=== PATIENT | male | born 1940 | race Caucasian/White ===

== ENCOUNTER 2017-10-25 09:57 | Outpatient (CLI) | payer MEDICARE, OTHER | END 2017-10-25 09:58 | disposition home or self-care (01) | LOC: BICULT 09:57 | PROVIDERS: ATTEND Internal Medicine Nephrology | DX: N18.3 Chronic kidney disease, stage 3 (moderate) (principal); N28.1 Cyst of kidney, acquired; N28.89 Other specified disorders of kidney and ureter | CPT/HCPCS: 76770 ==

== ENCOUNTER 2018-12-08 18:55 | Emergency (ER) | payer MEDICARE, OTHER ==
[2018-12-08 19:38] LABS: #Eosinphils 0.2 thou/uL (0.0-0.7); #Lymphocytes 1.7 thou/uL (1.20-3.40); #Monocytes 0.6 thou/uL (0.11-0.59); #Neutrophils 5.1 thou/uL (1.40-6.50); %Basophils 0.2 % (0.0-1.0); %Eosinophils 2.3 % (0.0-10.0); %Lymphocytes 22.2 % (21.0-51.0); %Monocytes 7.3 % (0.0-10.0); Hemoglobin 13.6 g/dL (14.0-18.0); Mean Corpuscular HGB CONC 32.6 g/dL (32.0-36.0); Mean Corpuscular Hemoglobin 31.4 pg (27.0-31.0); Mean Corpuscular Volume 96.2 fL (78.0-98.0); Mean Platelet Volume 6.9 fL (7.4-10.4); Platelet Count 276 thou/uL (130-400); RBC Distribution Width 12.9 % (11.5-14.5); Red Blood Cell (RBC) Count 4.35 mill/uL (4.70-6.10); White Blood Cell (WBC) Count 7.6 thou/uL (4.8-10.8)
[2018-12-08 19:45] LABS: INR-International Normal Ratio 1.7; PTT 32.3 SEC (22.9-36.1); Prothrombin Time 19.8 SEC (12.0-14.7)
--- NOTE | 2018-12-08 19:48 | CT ---
CT HEAD WITHOUT IV CONTRAST COMPARISON: None HISTORY: Injury after a fall 2020 minutes ago. Patient hit head and is on warfarin. TECHNIQUE: Axial CT imaging at 5 mm intervals from vertex through skull base without contrast FINDINGS: There is mild cerebral volume loss. There are scattered areas of diminished attenuation in the perive ntricular white matter likely attributed to chronic small vessel ischemic changes. There is no evidence of an acute cortical infarction or hemorrhage. No mass effect or midline shift is seen. The ventricular system is normal in size, shape, and position. There are postsurgical changes at the skull base on the left including evidence of left mastoidectomy . There is opacification of right-sided mastoid air cells There is a metallic density seen within the posterior aspect of the left temporal bone which may repr esent either a metallic foreign body or prior postsurgical change. This is not related to an acute findings as there is no overlying soft tissue swelling. There is minimal scalp soft tissue swelling seen within the right parietal region with suggestion of soft tissue irregularity probably due to associated laceration. No underlying calvarial fracture is appreciated. IMPRESSION: 1. No acute intracranial abnormality demonstrated. 2. Small right parietal scalp hematoma and associated laceration. No calvarial fracture is seen. 3. Mild cerebral volume loss. 4. Postsurgical changes left skull base including left mastoidectomy. 5. Opacification of right mastoid air cells.
[2018-12-08 19:59] LABS: ALT (SGPT) 11 U/L (8-55); AST (SGOT) 17 U/L (5-34); Albumin 3.7 g/dL (3.4-4.8); Alkaline Phosphatase 97 U/L (40-150); Anion Gap 14 mmol/L (10-20); BUN (Urea Nitrogen) 20 mg/dL (8.4-25.7); Bilirubin, Total 0.5 mg/dL (0.2-1.2); Calc. Creatinine Clearance 0 mL/min (70-130); Calcium 9.3 mg/dL (7.8-10.44); Carbon Dioxide 29 mmol/L (23-31); Chloride 97 mmol/L (98-107); Estimated GFR-MDRD 55; Globulin 2.9 g/dL (2.4-3.5); Glucose 108 mg/dL (83-110); Potassium 4.2 mmol/L (3.5-5.1); Protein, Total 6.6 g/dL (5.8-8.1); Sodium 136 mmol/L (136-145)
--- NOTE | 2018-12-08 20:13 | RAD ---
AP VIEW CHEST: 12/08/18 HISTORY: Cough. AP view chest is obtained on 12/08/18. Comparison made to previous exam from 05/20/07. AP view chest demonstrates surgical clips seen in the lower left neck. The lungs are well aerated. No evidence of active intrathoracic disease seen. No evidence of effusions, pneumonia, or pneumothorax seen. IMPRESSION: Unremarkable AP view chest. POS: [facility]
== END 2018-12-08 21:42 | disposition home or self-care (01) ==
LOC: ERS 18:55
DX: S01.03XA Puncture wound without foreign body of scalp, initial encounter (principal); R60.0 Localized edema; F17.200 Nicotine dependence, unspecified, uncomplicated; Z79.01 Long term (current) use of anticoagulants; Z86.718 Personal history of other venous thrombosis and embolism; W18.30XA Fall on same level, unspecified, initial encounter
CPT/HCPCS: 36415; 70450; 71045; 80053; 83880; 84484; 85025; 85610; 85730; 93005

== ENCOUNTER 2019-01-03 10:24 | Outpatient (CLI) | payer MEDICARE, OTHER ==
--- NOTE | 2019-01-03 12:22 | RAD ---
RIGHT HIP RADIOGRAPHS 2 VIEWS: DATE: 01/03/2019. PROVIDED CLINICAL HISTORY: Hip pain. FINDINGS: There is a displaced right femoral neck fracture with prominent superior and lateral migration of the femoral neck with respect to the femoral head. Hip joint space appears preserved. Surgical clips a re seen about the proximal thigh. IMPRESSION: Displaced right hip fracture. The patient was advised to present to the nearest emergency room. POS: [facility]
== END 2019-01-03 10:25 | disposition home or self-care (01) ==
LOC: BICRAD 10:24
PROVIDERS: ATTEND Family Medicine
DX: M25.551 Pain in right hip (principal); S72.001A Fracture of unspecified part of neck of right femur, initial encounter for closed fracture

== ENCOUNTER 2019-01-03 10:59 | Inpatient (IN) | payer MEDICARE, OTHER ==
[2019-01-03 13:02] LABS: #Eosinphils 0.1 thou/uL (0.0-0.7); #Lymphocytes 1.5 thou/uL (1.20-3.40); #Monocytes 0.7 thou/uL (0.11-0.59); #Neutrophils 5.7 thou/uL (1.40-6.50); %Basophils 0.3 % (0.0-1.0); %Eosinophils 1.3 % (0.0-10.0); %Lymphocytes 18.3 % (21.0-51.0); %Monocytes 8.4 % (0.0-10.0); %Neutrophils 71.7 % (42.0-75.0); Hemoglobin 13.6 g/dL (14.0-18.0); Mean Corpuscular HGB CONC 32.4 g/dL (32.0-36.0); Mean Corpuscular Hemoglobin 31.2 pg (27.0-31.0); Mean Corpuscular Volume 96.2 fL (78.0-98.0); Mean Platelet Volume 6.9 fL (7.4-10.4); Platelet Count 281 thou/uL (130-400); RBC Distribution Width 13.1 % (11.5-14.5); Red Blood Cell (RBC) Count 4.36 mill/uL (4.70-6.10); White Blood Cell (WBC) Count 7.9 thou/uL (4.8-10.8)
[2019-01-03] MEDS ORDERED: Morphine 4 MG/ML VIAL ONE (13:06)
[2019-01-03 13:08] LABS: INR-International Normal Ratio 2.4; PTT 53.7 SEC (22.9-36.1); Prothrombin Time 26.6 SEC (12.0-14.7)
[2019-01-03 13:26] LABS: ALT (SGPT) 12 U/L (8-55); AST (SGOT) 20 U/L (5-34); Albumin 3.9 g/dL (3.4-4.8); Alkaline Phosphatase 96 U/L (40-150); Anion Gap 13 mmol/L (10-20); BUN (Urea Nitrogen) 26 mg/dL (8.4-25.7); Bilirubin, Total 0.6 mg/dL (0.2-1.2); Calc. Creatinine Clearance 0 mL/min (70-130); Calcium 9.7 mg/dL (7.8-10.44); Carbon Dioxide 29 mmol/L (23-31); Chloride 100 mmol/L (98-107); Estimated GFR-MDRD 74; Globulin 3.2 g/dL (2.4-3.5); Glucose 94 mg/dL (83-110); Potassium 4.1 mmol/L (3.5-5.1); Protein, Total 7.1 g/dL (5.8-8.1); Sodium 138 mmol/L (136-145)
--- NOTE | 2019-01-03 13:51 | RAD ---
AP CHEST: Date: 01/03/19 HISTORY: Fall with chest injury. COMPARISON: 12/08/18. FINDINGS: The lungs are clear. No evidence of infiltrate. Numerous surgical clips overlie the left apex, unchan ged from prior exam. The vascular markings are normal. There is linear parenchymal stranding bilatera lly, which is stable and appears chronic. No evidence of infiltrate or effusion. Heart and mediastinu m unremarkable. Visualized osseous structures appear intact. IMPRESSION: No acute finding or interval change noted. POS: [facility]
--- NOTE | 2019-01-03 13:52 | RAD ---
RIGHT FEMUR 2 VIEWS: Date: 01/03/19 HISTORY: Injury from a fall. FINDINGS: Markedly displaced and foreshortened right subcapital femoral neck fracture. Bony demineralization. R ight hip joint arthrosis. IMPRESSION: Minimally comminuted foreshortened right subcapital femoral neck fracture with some resultant deformi ty. Bony demineralization. POS: [facility]
[2019-01-03] MEDS ORDERED: Ondansetron PF 4 MG/2 ML Vial IVP PRN ×2 (16:47→16:51)
[2019-01-03] MEDS ORDERED: Ondansetron ODT 4 MG TAB SL PRN (16:47)
[2019-01-03] MEDS ORDERED: Acetaminophen 325 MG TAB PO PRN (16:47)
[2019-01-03] MEDS ORDERED: Promethazine HCl 25 MG/ML VIAL IM PRN (16:51)
[2019-01-03] MEDS ORDERED: Morphine 2 MG/ML SYRINGE SLOW IVP PRN (16:51)
[2019-01-03] MEDS ORDERED: traMADol HCl 50 MG TAB PO PRN (16:51)
[2019-01-03] MEDS ORDERED: hydrALAZINE 20 MG/ML VIAL SLOW IVP PRN (16:51)
[2019-01-03] MEDS ORDERED: Cyclobenzaprine 10 MG TAB PO PRN (16:51)
[2019-01-03 17:16] VITALS: BMI 17.1
[2019-01-03] MEDS: Sodium Chloride 0.9% 1,000 ML IV SCH (18:40)
[2019-01-03] MEDS: Acetaminophen 1,000 MG in Premix Bag 1 BAG IVPB SCH (19:01)
[2019-01-03] MEDS: Famotidine 20 MG TAB PO SCH (19:05)
[2019-01-03] MEDS: Senokot S 8.6-50 MG TAB PO SCH (19:05)
[2019-01-03] MEDS: traMADol HCl 50 MG TAB PO SCH (19:05)
[2019-01-03] MEDS: Ibuprofen 600 MG TAB PO SCH (21:46)
--- NOTE | 2019-01-03 23:35 | CON ---
DATE OF CONSULTATION: 01/03/2019 CONSULTING PHYSICIAN: Dr. Huber Mcdowell. REASON FOR CONSULTATION: Subacute right hip fracture. BRIEF CLINICAL HISTORY: Robson is a 78-year-old white male, who has had right hip pain now for at least 4 to 5 weeks. Apparently, he fell quite some time ago and he has been ambulating and getting around with hip pain since then. He has not had a workup or any radiographs until he was brought to [facility], where plain radiographs in the emergency room demonstrated what appeared to be a subacute femoral neck fracture with shortening. Dr. Garcia evaluated the patient and our service was consulted for definitive orthopedic management of his problem. PAST MEDICAL HISTORY: Significant squamous cell carcinoma of the head and neck. Also, includes hypertension, nephrolithiasis, and deep vein thrombosis. PAST SURGICAL HISTORY: He has had a radical submandibular excision. He has also had multiple skin excisions and facial skin plasties. MEDICATIONS: Please see medication reconciliation form. ALLERGIES: NO KNOWN DRUG ALLERGIES. SOCIAL HISTORY: The patient smokes and has done so all his life. PHYSICAL EXAMINATION: Visual inspection of the right lower extremity demonstrates shortening and external rotation of the lower extremity, but he is neurovascularly intact. He is thin and appears poorly nourished overall. He is neurovascularly intact in the extremity and range of motion is not assessed due to an underlying fracture. IMAGING STUDIES: AP pelvis to the right hip demonstrates what appears to be a subacute femoral neck fracture with significant shortening. IMPRESSION: 1. Subacute right hip femoral neck fracture with shortening. 2. Cachexia, poor health and nourishment. 3. Hypertension. PLAN: 1. Due to the patient's anticoagulant status, we will try and allow for his INR and PT to come within normal limits for surgical intervention. He has a history of deep vein thrombosis and also he has been treated for. 2. The risks, benefits, options, alternatives, and rationale for proceeding with right hip hemiarthroplasty has been explained in great detail with the patient. He is ready to proceed. All questions were answered. No guarantee of outcome has been stated or implied. 3. Please see orders. 4. The patient will be tentatively scheduled for tomorrow, but I am a little skeptical that his PT/INR will be within normal limits within the next 24 hours if we are going to allow his Coumadin and therapy to wear off. Job ID: [id number]
--- NOTE | 2019-01-03 23:53 | HP ---
TRAUMA SURGEON: Matt Garcia DO CONSULTING PHYSICIAN: Huber Mcdowell MD HISTORY OF PRESENT ILLNESS: The patient is a 78-year-old male who presented to the emergency department complaining of right hip pain. He reports he fell on November 07, nearly two months ago. He was originally evaluated in the emergency department as well as by other physicians, but no injury was identified in the right hip. Today, x-ray imaging demonstrated that he had a right femoral neck fracture. He denied any other pain. Pulses are intact. No decreased motor sensation. Denies nausea, vomiting, or diarrhea. The patient had been ambulating with a walker since the time of the fall. He had previously not used a walker. REVIEW OF SYSTEMS: All additional 10-point review of systems negative except as indicated above. PAST MEDICAL HISTORY: Skin of the head and neck cancers, DVTs in the lower extremities, on Coumadin, throat cancer, hypertension. PAST SURGICAL HISTORY: Several skin surgeries on the head and neck. SOCIAL HISTORY: The patient reports smoking more than one pack of cigarettes per day for the past 60 years. He rarely drinks alcohol and he denies drug abuse. He lives with his at home. MEDICATIONS: 1. Amlodipine 10 mg daily. 2. Coumadin 5 mg daily. 3. Tylenol. 4. Eye ointment. The patient is unsure if this is his complete list of medications, but he does go to [facility] to have his prescriptions filled. ALLERGIES: NO KNOWN DRUG ALLERGIES. PHYSICAL EXAMINATION: VITAL SIGNS: Temperature 97.9, pulse 78, respirations 90, oxygen saturation 95% on room air, blood pressure 135/70. PRIMARY SURVEY: Airway intact. Adequate breath sounds bilaterally. 2+ pulses palpable in the bilateral radials, femorals, and DPs. GCS is 15. Gross motor and sensation are intact. No lacerations, bruising, or external bleeding. SECONDARY SURVEY: HEAD: Normocephalic, atraumatic. No gross palpable skull deformities or tenderness. EYES: Pupils 3-2, equal, round, and reactive to light bilaterally. ENT: No hemotympanum. No epistaxis. No septal hematoma. Midface stable to manipulation. No blood in the oropharynx. Dentition is intact. No anterior neck injury/crepitus/tenderness. Multiple skin lesions with deformities to his left ear and nose, which are chronic from previous surgeries due to cancer. C-SPINE: No step-offs or deformities, nontender. C-collar not in place. CHEST: Nontender. No crepitus. No abrasions or ecchymosis. Equal chest movement. ABDOMEN: Soft, nontender, nondistended. PELVIS: Stable to palpation. Right lateral hip and thigh tenderness. No abrasions or ecchymosis noted. RECTAL: Deferred. GENITOURINARY: Deferred. EXTREMITIES: No gross deformities. No abrasions or ecchymosis noted. Some shortening of the right lower extremity. 2+ pulses in the bilateral radials, femorals, and DPs. BACK/SPINE: No step-offs or deformities or tenderness to palpation of the thoracic or lumbar spine. No abrasions or ecchymosis noted. NEURO: GCS is 15. Gross motor and sensation intact, 5/5 strength in the bilateral occupational therapy supervisor, plantar flexion, and dorsiflexion. LABORATORY FINDINGS: White count 7.9, hemoglobin 13.6, hematocrit 41.9, platelets 281. INR 2.4. Sodium 138, potassium 4.1, chloride 100, carbon dioxide 29, BUN 26, creatinine 0.98, total bilirubin 0.6, AST 20, ALT 12. INR 2.4. DIAGNOSTIC REPORTS: Chest x-ray demonstrates no acute findings or interval changes noted. X-ray of the right femur demonstrates minimally comminuted foreshortened right subcapital femoral neck fracture with some resultant deformity. Bony demineralization. ASSESSMENT: 1. Status post mechanical fall, delayed presentation. 2. Right femoral neck fracture. 3. History of DVTs, on Coumadin. Skin cancer, throat cancer, hypertension. PLAN: The patient will be admitted to the trauma service. He will have a regular diet tonight, but will be made n.p.o. after midnight for possible OR with Dr. Mcdowell tomorrow. We will not give him vitamin K or FFP to reverse his INR. We will allow to slowly drift down. Surgery may be postponed until Tuesday if his INR is not below 2 tomorrow. We will restart all of his home medications except Coumadin as clinically indicated. PT/OT to see the patient postoperatively. We will also have Speech Language Pathology evaluate the patient for swallow evaluation as sometimes he has difficulty swallowing. He does have a significant history of chemotherapy and radiation to his neck. We will provide pain control as well as stress ulcer prophylaxis, but we will not give DVT prophylaxis at this time. The patient was seen and examined by Dr. Garcia this afternoon in the emergency department. Job ID: [id number]
[2019-01-04] MEDS: Acetaminophen 1,000 MG in Premix Bag 1 BAG IVPB SCH ×2 (00:22→06:22)
[2019-01-04] MEDS: traMADol HCl 50 MG TAB PO SCH ×4 (00:23→19:05)
[2019-01-04] MEDS: Ibuprofen 600 MG TAB PO SCH ×3 (05:51→22:55)
[2019-01-04 06:57] LABS: #Eosinphils 0.1 thou/uL (0.0-0.7); #Lymphocytes 0.9 thou/uL (1.20-3.40); #Monocytes 0.5 thou/uL (0.11-0.59); #Neutrophils 6.3 thou/uL (1.40-6.50); %Basophils 0.3 % (0.0-1.0); %Eosinophils 1.6 % (0.0-10.0); %Lymphocytes 10.9 % (21.0-51.0); %Monocytes 6.5 % (0.0-10.0); %Neutrophils 80.6 % (42.0-75.0); Hemoglobin 11.3 g/dL (14.0-18.0); Mean Corpuscular HGB CONC 33.6 g/dL (32.0-36.0); Mean Corpuscular Hemoglobin 32.1 pg (27.0-31.0); Mean Corpuscular Volume 95.5 fL (78.0-98.0); Mean Platelet Volume 7.4 fL (7.4-10.4); Platelet Count 236 thou/uL (130-400); Red Blood Cell (RBC) Count 3.51 mill/uL (4.70-6.10); White Blood Cell (WBC) Count 7.8 thou/uL (4.8-10.8)
[2019-01-04 07:01] LABS: INR-International Normal Ratio 2.6; Prothrombin Time 28.2 SEC (12.0-14.7)
[2019-01-04 07:18] LABS: Anion Gap 12 mmol/L (10-20); BUN (Urea Nitrogen) 19 mg/dL (8.4-25.7); Calc. Creatinine Clearance 58 mL/min (70-130); Calcium 8.6 mg/dL (7.8-10.44); Carbon Dioxide 26 mmol/L (23-31); Chloride 105 mmol/L (98-107); Estimated GFR-MDRD Greater than 90; Glucose 60 mg/dL (83-110); Magnesium 1.5 mg/dL (1.6-2.6); Phosphorus 2.8 mg/dL (2.3-4.7); Potassium 3.2 mmol/L (3.5-5.1); Sodium 140 mmol/L (136-145)
[2019-01-04] MEDS ORDERED: Magnesium 2 GM/50 ML 4 GM in Premix Bag 1 BAG IVPB SCH (07:45)
[2019-01-04] MEDS ORDERED: Potassium Phosphate 30 MMOL in Sodium Chloride 0.9% 500 ML IVPB SCH (07:45)
[2019-01-04] MEDS ORDERED: Magnesium Sulfate 4 GM in Sodium Chloride 0.9% 250 ML 250 ML IVPB SCH (08:15)
[2019-01-04] MEDS ORDERED: Potassium Phosphate 30 MMOL in Sodium Chloride 0.9% 250 ML 250 ML IVPB SCH (08:15)
[2019-01-04] MEDS: Senokot S 8.6-50 MG TAB PO SCH ×2 (08:30→20:02)
[2019-01-04] MEDS: Polyethylene Glycol 3350 17 GM Packet PO SCH (08:30)
[2019-01-04] MEDS: Famotidine 20 MG TAB PO SCH ×2 (08:30→20:01)
[2019-01-04] MEDS ORDERED: Acetaminophen 1,000 MG in Premix Bag 1 BAG IVPB SCH (09:00)
--- NOTE | 2019-01-04 12:26 | PRG ---
DATE OF SERVICE: 01/04/2019 SUBJECTIVE: Mr. Dawn is a 78-year-old man with history of multiple skin cancers. The patient is almost 2 months now status post ground level fall sustaining subacute right hip femoral neck fracture. The patient is also coagulopathic from warfarin therapy for chronic venous thromboembolism. He reports adequate pain control. OBJECTIVE: VITAL SIGNS: This morning include blood pressure 114/68, pulse 72, respiratory rate is 18, temperature is 98.4 degrees Fahrenheit, and oxygen saturation is 90% on room air, which is baseline. He has no dyspnea. HEART: Reveals regular rate and rhythm. No murmurs or gallops auscultated. LUNGS: Clear to auscultation bilaterally. Breathing, regular and nonlabored. ABDOMEN: Soft, nontender, and nondistended. EXTREMITIES: Reveal 2+ radial and pedal pulses bilaterally. He has no ankle edema present. NEUROLOGIC: Reveals no focal deficits present. LABORATORY FINDINGS: Today includes a CBC with 7800 white blood cells, hemoglobin and hematocrit of 11.3 and 33.5 respectively. Platelet count is 236,000. PT and INR noted at 28.2 seconds and 2.6 respectively. Metabolic profile; sodium 140, potassium 3.2, chloride is 105, bicarb is 26, BUN is 19, creatinine 0.73, glucose is 60, magnesium 1.5, and phosphorus is 2.8. IMPRESSION: 1. Postadmission day #1 status post fall with subacute right femoral neck fracture, it is almost 2 months post injury. 2. Warfarin-induced coagulopathy. 3. History of venous thromboembolism. 4. Acute hypomagnesemia. 5. Acute hypophosphatemia. 6. Acute hypokalemia. PLAN: 1. Correct abnormal electrolytes. 2. The patient will be given vitamin K 2 mg intravenously to partially reverse his warfarin therapy. 3. Anticipate the patient will be able to go to surgery tomorrow for operative fixation of the right hip fracture. Above findings and plan have been discussed with the patient, who indicates understanding of information given. I have answered his questions. Job ID: [id number]
[2019-01-04] MEDS: Acetaminophen 500 MG TAB PO SCH ×2 (12:45→19:05)
[2019-01-04] MEDS: Sodium Chloride 0.9% 1,000 ML IV SCH (14:05)
[2019-01-05] MEDS: Acetaminophen 500 MG TAB PO SCH ×6 (00:18→23:28)
[2019-01-05] MEDS: traMADol HCl 50 MG TAB PO SCH ×5 (00:18→23:27)
[2019-01-05] MEDS: Sodium Chloride 0.9% 1,000 ML IV SCH ×2 (01:56→16:38)
[2019-01-05] MEDS: Ibuprofen 600 MG TAB PO SCH ×3 (05:42→23:26)
[2019-01-05] MEDS ORDERED: Fentanyl 100 MCG/2 ML VIAL ONE ×2 (06:49)
[2019-01-05 06:54] LABS: #Eosinphils 0.1 thou/uL (0.0-0.7); #Lymphocytes 0.8 thou/uL (1.20-3.40); #Monocytes 0.5 thou/uL (0.11-0.59); #Neutrophils 8.4 thou/uL (1.40-6.50); %Basophils 0.2 % (0.0-1.0); %Eosinophils 0.7 % (0.0-10.0); %Lymphocytes 8.5 % (21.0-51.0); %Monocytes 4.6 % (0.0-10.0); Hemoglobin 12.6 g/dL (14.0-18.0); Mean Corpuscular HGB CONC 33.5 g/dL (32.0-36.0); Mean Corpuscular Hemoglobin 31.9 pg (27.0-31.0); Mean Corpuscular Volume 95.2 fL (78.0-98.0); Mean Platelet Volume 6.8 fL (7.4-10.4); Platelet Count 249 thou/uL (130-400); RBC Distribution Width 13.1 % (11.5-14.5); Red Blood Cell (RBC) Count 3.94 mill/uL (4.70-6.10); White Blood Cell (WBC) Count 9.8 thou/uL (4.8-10.8)
[2019-01-05 06:56] LABS: INR-International Normal Ratio 1.4; Prothrombin Time 16.9 SEC (12.0-14.7)
[2019-01-05] MEDS: Polyethylene Glycol 3350 17 GM Packet PO SCH (08:00)
[2019-01-05] MEDS: Senokot S 8.6-50 MG TAB PO SCH ×2 (08:00→21:29)
[2019-01-05] MEDS: Famotidine 20 MG TAB PO SCH ×2 (08:00→21:19)
[2019-01-05] MEDS ORDERED: Benzocaine 20% Spray 60 ML CAN ONE (08:08)
[2019-01-05] MEDS ORDERED: Ketamine 50 MG/ML (10ML VIAL) ONE (08:10)
[2019-01-05 08:32] LABS: Anion Gap 9 mmol/L (10-20); BUN (Urea Nitrogen) 17 mg/dL (8.4-25.7); Calc. Creatinine Clearance 60 mL/min (70-130); Calcium 8.4 mg/dL (7.8-10.44); Carbon Dioxide 31 mmol/L (23-31); Chloride 103 mmol/L (98-107); Estimated GFR-MDRD Greater than 90; Glucose 94 mg/dL (83-110); Magnesium 1.9 mg/dL (1.6-2.6); Phosphorus 2.2 mg/dL (2.3-4.7); Potassium 3.9 mmol/L (3.5-5.1); Sodium 139 mmol/L (136-145)
[2019-01-05 10:30] LABS: Actual Bicarbonate (HCO3a) 29.6 mEq/L (22-28); Base Excess (BEa) 2.2 mEq/L (-2.0 to +3.0); CO2 Tension 58.5 mmHg (35.0-45.0); Calcium, Ionized 1.13 mmol/L (1.12-1.30); Carboxyhemoglobin (COHb) 1.4 gm% (0.0-3.0); Hemoglobin (Hb) 13.4 g/dL (14.0-18.0); O2 Tension (PaO2) 177.9 mmHg (> 70.0); Potassium - ABG Lab 4.07 mmol/L (3.70-5.30); pH, Arterial 7.32 (7.35-7.45)
[2019-01-05 10:34] LABS: ALV-art Gradient 34.175 (0-20); Puncture Site LINE
[2019-01-05] MEDS ORDERED: Ondansetron PF 4 MG/2 ML Vial ONE (10:45)
[2019-01-05] MEDS ORDERED: Dexamethasone 20 MG/5 ML VIAL ONE (10:45)
[2019-01-05] MEDS ORDERED: ePHEDrine 50 MG/ML VIAL ONE (10:45)
[2019-01-05] MEDS ORDERED: Rocuronium Bromide 10 MG/ML (10ML VIAL) ONE (10:45)
[2019-01-05] MEDS ORDERED: PHENYLEPHRINE-NS 100 MCG/ML 10 ML SYRINGE ONE (10:45)
[2019-01-05] MEDS ORDERED: PROPOFOL 200 MG/20 ML VIAL ONE (10:45)
[2019-01-05] MEDS ORDERED: SYSTANE 3.5 GM TUBE EA EYE PRN (12:29)
[2019-01-05] MEDS ORDERED: Refresh Lacri-lube Opth Oint 7 GM TUBE FS PRN (12:44)
--- NOTE | 2019-01-05 12:51 | OP ---
DATE OF PROCEDURE: 01/05/2019 PREOPERATIVE DIAGNOSIS: Right hip femoral neck fracture, chronic. POSTOPERATIVE DIAGNOSIS: Right hip femoral neck fracture, chronic. PROCEDURE PERFORMED: Right hip hemiarthroplasty. ANESTHESIA: General. DAIRY CATTLE FARM WORKER: Gabby Vega PA-C ESTIMATED BLOOD LOSS: 150 mL. IMPLANTS: DePuy system was used with a size 7 press-fit Stafford stem, a 28 x 55 bipolar cup and a +5 Articul/Sergio femoral head. COMPLICATIONS: None. DRAINS: None. SPECIMEN: None. OUTCOME: Stable hemiarthroplasty. INDICATIONS: The patient is a 78-year-old gentleman, who approximately two months ago sustained a ground level fall, injuring his right hip. The patient continued to attempt to mobilize and ambulate; however, with ongoing groin pain, eventually presented to the hospital, where x-rays demonstrated a femoral neck fracture. The patient was on blood thinners and as such, now reversed and scheduled for right hip hemiarthroplasty to provide pain relief and improve mobility. Informed consent has been obtained. I believe all questions have been answered. Risks and benefits have been discussed and risks included, but are not limited to bleeding, infection, nerve injury, DVT, PE, loss of limb or life, or hip dislocation. The patient appears to understand and does wish to proceed. Consent has been signed. DESCRIPTION OF PROCEDURE: The patient was brought to the operating room and a time-out performed followed by induction of general anesthesia. Next, the patient was positioned in the left lateral decubitus position and a sterile prep and drape was performed of the right lower extremity. Next, a curvilinear incision was made centered over the greater trochanter. After skin was sharply incised, dissection was carried down with electrocautery to the underlying fascia vaibhav and tensor fascia. This structure was incised in-line with skin incision and then reflected anteriorly and posteriorly with a Charnley retractor. The trochanteric bursa was swept off the short external rotators and then an elevator was passed deep to the abductors exposing the short external rotators. The piriformis superior and inferior gemelli and obturator internus were released off the posterior aspect of the proximal femur and then reflected posteriorly exposing the capsule. A T-capsulotomy was then performed and at this point, the fracture of the femoral neck could be clearly visualized. Some of the scar tissue from around the fracture site was removed with rongeur and then a T-handle corkscrew device was inserted in the femoral head and the femoral head was removed without difficulty. Next, an oscillating saw was used to make a femoral neck cut. A box chisel was then used to further prepare the proximal femur followed by a T-handle awl, then lateralizing reamer. Progressive T-handle awls were passed down the canal until a size 7 gave a good fit distally. Next, broaching was started at size 4 and continued up to size 7, which gave good proximal fit and fill. The trial broach was left in place and a trial reduction performed with a +5 femoral head, which gave reasonably good adventism of leg lengths and reasonably good stability of the hip. Next, all trial components were removed from the hip and then the acetabular cup in the femoral canal was irrigated with 3 L of normal saline using Pulsavac. Next, the size 7 stem was introduced in the proximal femur and impacted down to an acceptable level. This was followed by application of the bipolar head on the stem and then reduction of the hip. The hip was found to be relatively stable. Next, wound closure was performed. A #2 Vicryl was used to reapproximate the leaflets of the capsule. This was followed by a #2 Vicryl to reapproximate the short external rotators. A #2 Vicryl also used for the tensor fascia and fascia vaibhav followed by 2-0 Vicryl subcutaneously and ambrose for the skin. Xeroform gauze and tape dressing was applied to the thigh and the patient was transferred to recovery room in stable condition. There were no complications. He tolerated the procedure well. Job ID: [id number]
--- NOTE | 2019-01-05 14:06 | PRG ---
DATE OF SERVICE: 01/05/2019 SUBJECTIVE: Mr. Dawn is a 78-year-old man with extensive comorbidities. The patient underwent right hip hemiarthroplasty today. Following surgery, he is admitted to intensive care unit now on mechanical ventilator support. I have attempted multiple times to wean the patient to CPAP without success as the patient will promptly become apneic. He remains quite deconditioned on no sedatives at this time. Blood pressure, however, has remained stable on no vasopressor or inotropic support. OBJECTIVE: VITAL SIGNS: Include blood pressure 140/70, pulse is 83, respiratory rate is 16, temperature is 96.1 degrees Fahrenheit, and oxygen saturation is 95% on FiO2 of 40%. HEART: Reveals regular rate and rhythm. No murmurs or gallops auscultated. LUNGS: Clear to auscultation bilaterally. Breathing, regular and nonlabored. ABDOMEN: Soft and scaphoid. He has no tenderness to palpation. EXTREMITIES: Reveal 2+ radial and pedal pulses bilaterally. No ankle edema is present. NEUROLOGIC: Reveals no focal deficits present. LABORATORY FINDINGS: Today include a CBC with 9800 white blood cells, hemoglobin and hematocrit of 12.6 and 37.5 respectively. Platelet count 249,000. Metabolic profile; sodium 139, potassium 3.9, chloride is 103, bicarb is 31, BUN 17, creatinine is 0.71, glucose 94, magnesium 1.9, and phosphorus is 2.2. IMPRESSION: 1. Status post right hip hemiarthroplasty. 2. Acute respiratory failure secondary to chronic debility. 3. Acute hypomagnesemia. 4. Acute hypophosphatemia. 5. Acute hypokalemia. PLAN: 1. Correct abnormal electrolytes. 2. Continue with mechanical ventilator support and begin ventilatory wean as the patient tolerates. 3. I did discuss with the patient's and granddaughter at bedside. 4. I raise concerns about this patient's chronic malnutrition status and debility, which will make ventilatory liberation tedious. 5. 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 The patient's have indicated understanding of information given. I have answered the questions. Total critical care time is 45 minutes. Job ID: [id number]
[2019-01-05 16:01] LABS: Actual Bicarbonate (HCO3a) 29.9 mEq/L (22-28); Base Excess (BEa) 4.7 mEq/L (-2.0 to +3.0); CO2 Tension 46.5 mmHg (35.0-45.0); Hemoglobin (Hb) 13.2 g/dL (14.0-18.0); O2 Tension (PaO2) 69.1 mmHg (> 70.0); Potassium - ABG Lab 4.38 mmol/L (3.70-5.30); pH, Arterial 7.43 (7.35-7.45)
[2019-01-05 16:20] LABS: ALV-art Gradient 157.975 (0-20); Puncture Site LINE
[2019-01-05] MEDS: Acetaminophen 1,000 MG in Premix Bag 1 BAG IVPB SCH ×2 (16:40→23:34)
--- NOTE | 2019-01-05 18:06 | RAD ---
RIGHT HIP: 01/05/19 Two views. HISTORY: Postop follow-up. FINDINGS/IMPRESSION: Postop changes are noted. A right hip prosthesis has been placed. Components appear in adequate posit ion and alignment. POS: [facility]
[2019-01-05] MEDS: CEFAZOLIN 2 GM in Premix Bag 1 BAG IVPB SCH ×2 (18:22→23:34)
[2019-01-06] MEDS: CEFAZOLIN 2 GM in Premix Bag 1 BAG IVPB SCH ×2 (01:42→09:27)
[2019-01-06 05:00] LABS: #Lymphocytes 0.8 thou/uL (1.20-3.40); #Monocytes 0.5 thou/uL (0.11-0.59); #Neutrophils 10.1 thou/uL (1.40-6.50); %Basophils 0.4 % (0.0-1.0); %Eosinophils 0.1 % (0.0-10.0); %Lymphocytes 6.6 % (21.0-51.0); %Monocytes 4.3 % (0.0-10.0); %Neutrophils 88.6 % (42.0-75.0); Hemoglobin 11.5 g/dL (14.0-18.0); Mean Corpuscular HGB CONC 32.2 g/dL (32.0-36.0); Mean Corpuscular Hemoglobin 31.5 pg (27.0-31.0); Mean Corpuscular Volume 97.9 fL (78.0-98.0); Mean Platelet Volume 7.3 fL (7.4-10.4); Platelet Count 234 thou/uL (130-400); RBC Distribution Width 13.1 % (11.5-14.5); Red Blood Cell (RBC) Count 3.64 mill/uL (4.70-6.10); White Blood Cell (WBC) Count 11.4 thou/uL (4.8-10.8)
[2019-01-06 05:26] LABS: Anion Gap 8 mmol/L (10-20); BUN (Urea Nitrogen) 18 mg/dL (8.4-25.7); Calc. Creatinine Clearance 58 mL/min (70-130); Calcium 8.2 mg/dL (7.8-10.44); Carbon Dioxide 31 mmol/L (23-31); Chloride 103 mmol/L (98-107); Estimated GFR-MDRD Greater than 90; Glucose 121 mg/dL (83-110); Magnesium 1.8 mg/dL (1.6-2.6); Phosphorus 3.4 mg/dL (2.3-4.7); Potassium 4.6 mmol/L (3.5-5.1); Sodium 137 mmol/L (136-145)
[2019-01-06] MEDS: traMADol HCl 50 MG TAB PO SCH ×3 (06:05→17:55)
[2019-01-06] MEDS: Acetaminophen 500 MG TAB PO SCH ×3 (06:05→17:55)
[2019-01-06] MEDS: Ibuprofen 600 MG TAB PO SCH (06:05)
[2019-01-06] MEDS: Acetaminophen 1,000 MG in Premix Bag 1 BAG IVPB SCH (06:10)
[2019-01-06] MEDS: Sodium Chloride 0.9% 1,000 ML IV SCH (06:11)
[2019-01-06] MEDS: Senokot S 8.6-50 MG TAB PO SCH ×2 (09:59→21:33)
[2019-01-06] MEDS: Polyethylene Glycol 3350 17 GM Packet PO SCH (09:59)
[2019-01-06] MEDS: Famotidine 20 MG TAB PO SCH ×2 (09:59→21:32)
[2019-01-06] MEDS ORDERED: Ibuprofen 600 MG TAB PO PRN (11:07)
--- NOTE | 2019-01-06 12:58 | PRG ---
DATE OF SERVICE: 01/06/2019 SUBJECTIVE: Mr. Dawn is a 78-year-old man, who is postoperative day #1 status post right hip hemiarthroplasty. He was successfully extubated and has had no pulmonary issues since. This morning, he is awake and alert. He reports adequate pain control. Urinary output which was previously marginal is now improving. The patient just had a bowel movement. OBJECTIVE: VITAL SIGNS: This morning, include blood pressure 136/70, pulse 85, respiratory rate 17, temperature 97.9 degrees Fahrenheit, and oxygen saturation is 98% on 2 L by nasal cannula oxygen. HEART: Reveals regular rate and rhythm. No murmurs or gallops auscultated. LUNGS: Clear to auscultation bilaterally. Breathing regular and nonlabored. ABDOMEN: Soft, nontender, and nondistended. EXTREMITIES: Reveals 2+ radial and pedal pulses bilaterally. No ankle edema is present. NEUROLOGIC: Reveals no focal deficits present. LABORATORY FINDINGS: CBC with 11,400 white blood cells, hemoglobin and hematocrit 11.5 and 35.7 respectively. Platelet count is 234,000. Metabolic profile; sodium 137, potassium is 4.6, chloride is 103, bicarb is 31, BUN 18, creatinine 0.74, glucose is 121, and magnesium is 1.8. IMPRESSION AND PLAN: Postop day #1, status post right hip hemiarthroplasty. The patient is hemodynamically stable. We will discontinue Bhatia catheter this morning. Activity will be initiated per Physical and Occupational Therapy. We will ask PM and R to evaluate the patient for possible inpatient rehabilitation postdischarge. We will resume warfarin therapy due to the patient's high risk for venous thromboembolism. The patient has a history of factor V Leiden deficiency. We will initiate Lovenox for VTE prophylaxis. Above findings and plan were discussed with the patient and his at the bedside. They indicated understanding of information given. I have answered their questions. The patient is stable and will be transferred to general surgical floor today. Job ID: [id number]
--- NOTE | 2019-01-06 14:36 | EKG ---
Test Reason : Blood Pressure : / mmHG Vent. Rate : 085 BPM Atrial Rate : 085 BPM P-R Int : 158 ms QRS Dur : 086 ms QT Int : 402 ms P-R-T Axes : 079 059 082 degrees QTc Int : 478 ms Sinus rhythm with occasional Premature ventricular complexes Otherwise normal ECG Confirmed by DANNIE SIGALA D.O. ([id number]), time study technician KAREY SMITH ([id number]) on 01/06/2019 2:36:09 PM Referred By: Confirmed By:DANNIE SIGALA D.O.
[2019-01-06] MEDS ORDERED: Warfarin Sodium 5 MG TAB PO SCH (17:00)
[2019-01-06] MEDS: Enoxaparin Sodium 40 MG/0.4 ML SYRINGE SC SCH (21:32)
[2019-01-07] MEDS: traMADol HCl 50 MG TAB PO SCH ×4 (00:45→18:01)
[2019-01-07] MEDS: Acetaminophen 500 MG TAB PO SCH ×4 (00:45→18:01)
[2019-01-07 05:01] LABS: INR-International Normal Ratio 1.4
[2019-01-07 05:02] LABS: PTT 50.1 SEC (22.9-36.1)
[2019-01-07 05:14] LABS: Anion Gap 10 mmol/L (10-20); BUN (Urea Nitrogen) 24 mg/dL (8.4-25.7); Calc. Creatinine Clearance 61 mL/min (70-130); Calcium 8.1 mg/dL (7.8-10.44); Carbon Dioxide 30 mmol/L (23-31); Chloride 103 mmol/L (98-107); Estimated GFR-MDRD Greater than 90; Glucose 83 mg/dL (83-110); Potassium 4.1 mmol/L (3.5-5.1); Sodium 139 mmol/L (136-145)
[2019-01-07] MEDS: Famotidine 20 MG TAB PO SCH ×2 (08:01→20:43)
[2019-01-07] MEDS: Polyethylene Glycol 3350 17 GM Packet PO SCH (08:01)
[2019-01-07] MEDS: Senokot S 8.6-50 MG TAB PO SCH ×2 (08:01→20:48)
[2019-01-07 09:56] LABS: Magnesium 1.6 mg/dL (1.6-2.6); Phosphorus 2.1 mg/dL (2.3-4.7)
[2019-01-07] MEDS ORDERED: Cyclobenzaprine 10 MG TAB PO PRN (11:21)
[2019-01-07] MEDS ORDERED: Magnesium 2 GM/50 ML 2 GM in Premix Bag 1 BAG IVPB SCH (11:45)
[2019-01-07] MEDS ORDERED: Sodium Phosphate 30 MMOL in Sodium Chloride 0.9% 250 ML 250 ML IVPB SCH (12:00)
--- NOTE | 2019-01-07 14:19 | PRG ---
DATE OF SERVICE: 01/07/2019 SUBJECTIVE: The patient was seen this morning, lying in bed with no signs of acute distress. He had no acute events overnight. Reported pain was well controlled, but was having increased spasms in his right lower extremity. Denied shortness of breath or difficulty breathing. Denied cough. Tolerating his diet. Working on physical and occupational therapy, voiding without difficulties. Denied nausea, vomiting, or diarrhea. OBJECTIVE: VITAL SIGNS: Temperature 98.1, pulse 83, respirations 16, oxygen saturation 95% on room air, blood pressure 106/64. GENERAL: Frail, elderly male, lying in bed with no signs of acute distress. CARDIAC: Regular rate and rhythm. No murmurs, gallops, or rubs. PULMONARY: Equal chest rise and fall. Clear breath sounds bilaterally. No signs of acute respiratory distress. GI: Abdomen is soft, nontender, nondistended. EXTREMITIES: 2+ pulses in all extremities. Gross motor and sensation are intact in all extremities. NEURO: GCS is 15. Gross motor and sensation are intact. LABORATORY FINDINGS: White count 11.4, hemoglobin 11.5, hematocrit 35.7, platelets 234. INR 1.4. Sodium 139, potassium 4.1, chloride 103, carbon dioxide 30, BUN 24, creatinine 0.7, phosphorous 2.1, magnesium 1.6. DIAGNOSTIC FINDINGS: There are no new diagnostic findings to report. ASSESSMENT: 1. Status post mechanical fall. 2. Right femoral neck fracture, status post repair. 3. Acute respiratory failure, resolved. 4. History of skin and neck cancer, deep vein thrombosis, and hypertension. PLAN: We will continue current diet. Add Flexeril p.r.n. for muscle spasms. Continue Ensure b.i.d. Replace magnesium and phosphorus. We will increase Coumadin to 7.5 mg at night. Continue bridging with Lovenox. Continue physical and occupational therapy. Rehab screen is pending at this time. The patient was discussed with Dr. Garcia this morning after rounds. Job ID: [id number]
[2019-01-07 15:12] LABS: #Lymphocytes 0.9 thou/uL (1.20-3.40); #Monocytes 0.5 thou/uL (0.11-0.59); #Neutrophils 6.7 thou/uL (1.40-6.50); %Eosinophils 0.5 % (0.0-10.0); %Monocytes 5.8 % (0.0-10.0); %Neutrophils 82.7 % (42.0-75.0); Mean Corpuscular HGB CONC 35.6 g/dL (32.0-36.0); Mean Corpuscular Hemoglobin 34.7 pg (27.0-31.0); Mean Corpuscular Volume 97.4 fL (78.0-98.0); Mean Platelet Volume 6.8 fL (7.4-10.4); Platelet Count 211 thou/uL (130-400); RBC Distribution Width 13.2 % (11.5-14.5); Red Blood Cell (RBC) Count 3.18 mill/uL (4.70-6.10); White Blood Cell (WBC) Count 8.1 thou/uL (4.8-10.8)
[2019-01-07] MEDS: Warfarin Sodium 7.5 MG TAB PO SCH (17:52)
[2019-01-07] MEDS: Enoxaparin Sodium 40 MG/0.4 ML SYRINGE SC SCH (20:43)
[2019-01-08] MEDS: Acetaminophen 500 MG TAB PO SCH ×4 (00:07→17:06)
[2019-01-08] MEDS: traMADol HCl 50 MG TAB PO SCH ×4 (00:07→17:06)
[2019-01-08 06:06] LABS: INR-International Normal Ratio 1.4; Prothrombin Time 17.6 SEC (12.0-14.7)
[2019-01-08 06:07] LABS: #Eosinphils 0.1 thou/uL (0.0-0.7); #Lymphocytes 1.2 thou/uL (1.20-3.40); #Monocytes 0.5 thou/uL (0.11-0.59); #Neutrophils 4.6 thou/uL (1.40-6.50); %Basophils 0.2 % (0.0-1.0); %Lymphocytes 18.7 % (21.0-51.0); %Monocytes 7.3 % (0.0-10.0); %Neutrophils 71.8 % (42.0-75.0); Hemoglobin 10.2 g/dL (14.0-18.0); Mean Corpuscular HGB CONC 31.9 g/dL (32.0-36.0); Mean Corpuscular Hemoglobin 31.1 pg (27.0-31.0); Mean Corpuscular Volume 97.4 fL (78.0-98.0); Mean Platelet Volume 7.2 fL (7.4-10.4); Platelet Count 222 thou/uL (130-400); RBC Distribution Width 13.1 % (11.5-14.5); Red Blood Cell (RBC) Count 3.27 mill/uL (4.70-6.10); White Blood Cell (WBC) Count 6.4 thou/uL (4.8-10.8)
[2019-01-08 06:23] LABS: Anion Gap 9 mmol/L (10-20); BUN (Urea Nitrogen) 17 mg/dL (8.4-25.7); Calc. Creatinine Clearance 89 mL/min (70-130); Calcium 8.2 mg/dL (7.8-10.44); Carbon Dioxide 32 mmol/L (23-31); Chloride 101 mmol/L (98-107); Estimated GFR-MDRD Greater than 90; Glucose 109 mg/dL (83-110); Magnesium 1.8 mg/dL (1.6-2.6); Phosphorus 2.1 mg/dL (2.3-4.7); Potassium 3.5 mmol/L (3.5-5.1); Sodium 138 mmol/L (136-145)
[2019-01-08] MEDS ORDERED: Magnesium 2 GM/50 ML 2 GM in Premix Bag 1 BAG IVPB SCH (07:45)
[2019-01-08] MEDS ORDERED: Potassium Phosphate 30 MMOL in Sodium Chloride 0.9% 500 ML IVPB SCH (07:45)
[2019-01-08] MEDS ORDERED: Potassium Phosphate 30 MMOL in Sodium Chloride 0.9% 250 ML 250 ML IVPB SCH (07:45)
[2019-01-08] MEDS: Famotidine 20 MG TAB PO SCH (08:02)
[2019-01-08] MEDS: Polyethylene Glycol 3350 17 GM Packet PO SCH (08:03)
[2019-01-08] MEDS: Senokot S 8.6-50 MG TAB PO SCH (08:04)
[2019-01-08] MEDS ORDERED: SYSTANE 3.5 GM TUBE EA EYE SCH (09:00)
[2019-01-08 16:25] VITALS: BP 124/72; TEMP 97.5
[2019-01-08] MEDS: Warfarin Sodium 7.5 MG TAB PO SCH (16:54)
--- NOTE | 2019-01-08 23:54 | DIS ---
DATE OF ADMISSION: 01/03/2019 DATE OF DISCHARGE: 01/08/2019 ADMISSION DIAGNOSES: Mechanical fall, delayed presentation. Right femoral neck fracture. DISCHARGE DIAGNOSES: Mechanical fall, delayed presentation. Right femoral neck fracture. CONSULTING PHYSICIAN: Dr. Mcdowell of Orthopedic Surgery. PROCEDURES: OR on 01/05/2019, for right hip hemiarthroplasty. HOSPITAL COURSE: The patient is a 78-year-old male who reported to the emergency department after having consistent right hip pain for 2 months. He reported a fall 2 months prior, but had not been evaluated because he thought it was just strained, but decided to come to the emergency department after the pain did not get better. On evaluation, it was determined that he had a right femoral neck fracture. Subsequently, he was admitted to the floor. 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 Coumadin was held, but INR did not drop appropriately for operative intervention and as such, he received 2 mg of vitamin K. He went to the OR on the with Dr. Mcdowell for right hip hemiarthroplasty. Postoperatively, he was started on Lovenox and bridged to Coumadin. At time of discharge, his INR was not therapeutic, but the Coumadin was increased to 7.5 mg with instructions for rehab to recheck INR and decrease back to the home dose of 5 mg at night. At the time of discharge, the patient's hospital course was also complicated as he was a difficult extubation postop, he did spend one night in ICU, was extubated the next day. At the time of discharge, the patient was tolerating a regular soft diet, drinking Ensure t.i.d. He was working with Physical therapy, voiding without difficulties. His pain was well controlled. DISPOSITION: Acute rehab. DISCHARGE CONDITION: Satisfactory. PHYSICAL EXAMINATION: VITAL SIGNS: Temperature 98.0, pulse 85, respirations 20, oxygen saturation 97% on room air, blood pressure 117/76. GENERAL: Frail, elderly male, lying in bed with no signs of acute distress. CARDIAC: Regular rate and rhythm. No murmurs, gallops, or rubs. PULMONARY: Equal chest rise and fall. Clear breath sounds bilaterally. No signs of acute respiratory distress. GI: Abdomen is soft, nontender, nondistended. EXTREMITIES: 2+ pulses in all extremities. Mild pain to right thigh. No significant swelling noted. Gross motor and sensation intact in all extremities. NEURO: GCS is 15. Pupils equal, round, reactive to light bilaterally. DISCHARGE INSTRUCTIONS: The patient was discharged to acute rehab facility with followups with Dr. Noel in 14 days. He has activity as tolerated with right posterior hip precautions. He has a regular diet with Ensure b.i.d. He is to have physical and occupational therapy, use a walker and incentive spirometer. DISCHARGE MEDICATIONS: Tylenol, Artificial Tears, Flexeril, Lovenox therapeutic dose, ibuprofen, mineral oil, ophthalmic ointment, MiraLAX, Senokot S, tramadol, warfarin 7.5 mg at night. FOLLOWUP APPOINTMENTS: The patient is to follow up with Dr. Noel in 14 days. This is merely a summary of the patient's hospitalization. For full details, please see his medical record in its entirety. Job ID: [id number]
--- NOTE | 2019-01-09 05:43 | PQF ---
[employer] Winform Viewer ADAN SPEAR [place], [place] [id number] [id number] CLINICAL DOCUMENTATION CLARIFICATION FORM: POST DISCHARGE Addendum to original discharge summary date: ____ Late entry note date: __ Date: 01-09-2019 ATTN:Dacia Santamaria Please exercise your independent, professional judgment in responding to the clarification form. Clinical indicators are provided on the bottom of this form for your review Based on your clinical knowledge kindly specify the malnutrition. Please check appropriate box(s): [ ] Protein Calorie Malnutrition: [ ] Mild [ ] Moderate [ ] Severe [ ] Other Malnutrition (please specify) __ [ ] Underweight without malnutrition [ X ] Cachexia [ ] Other diagnosis specify: [ ] Unable to determine CLINICAL INDICATORS: H&P 01/[address] Katz We will also have speech language pathology evaluate the patient for swallow evaluation as sometimes he has difficulty swallowing Consult 01/[address] Chandra He is thin and appears poorly nourished overall. Consult 01/[address] Chandra cachexia, poor healh and nourishment PN 01/[address] Garcia Impression: Acute hypomagnesemia, acute hypophosphatemia, acute hypokalemia PN 01/[address] Garcia Acute respiratory failure secondary to chronic debility PN 01/[address] Garcia I raise concerns about this patient chronic malnutrition and debility, which will make ventilatory liberation tedious PN 01/[address] Garcia the need for potential percutaneous gstrostomy tube placement BMI=17.1kg/m2 RISK FACTORS: H&P 01/03- Femoral Neck fracture PN Dr. 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 Bert Subramanian Hip Hemiarthroplasty TREATMENT: PN Dr. Garcia- Correct abnormal electrolytes PN Dr. Garcia- mechanical ventilator support PN [place]- Continue physical therapy DS Dr. Katz-Ensure BID Moderate Malnutrition (in acute illness) Energy Intake: <75% of estimated energy requirement for > 7 days Weight Loss: 1-2%/1 week; 5%/ 1 month; 7.5%/3 months Other: mild body fat loss; mild muscle mass loss; mild fluid accumulation; Severe Malnutrition (in acute illness) Energy Intake: < 50% of estimated energy requirement for > 5 days Weight Loss: >1-2%/1 week; >5%/1 month; >7.5%/3 months Other: moderate body fat loss; moderate muscle mass loss; moderate- severe fluid accumulation; measurably reduced network diagnostic support specialist strength Moderate Malnutrition (in chronic illness) Energy Intake: <75% of estimated energy requirement for >1 month Weight Loss: 5%/1 month; 7.5%/3 months; 10%/6 months; 20%/1 year Other: mild body fat loss; mild muscle mass loss; mild fluid accumulation Severe Malnutrition (in chronic illness) Energy Intake: <75% of estimated energy requirement for >1 month Weight Loss: >5%/1 month; >7.5%/3 months; >10%/6 months; >20%/1 year Other: severe body fat loss; severe muscle mass loss; severe fluid accumulation ; measurably reduced network diagnostic support specialist strength (This form is maintained as a part of the permanent medical record) 2014 [employer]. All Rights Reserved [email or web address] [not provided] [email or web address]
== END 2019-01-08 18:02 | DRG 469 ==
LOC: ERS 10:59 → ERHOLD 13:00 → T4-A 16:44 → CCU 01-05 10:15 → SURG B 01-06 12:42
PROVIDERS: ADMIT Surgery; ATTEND Surgery
PROC: 0SRR01A Replacement of Right Hip Joint, Femoral Surface with Metal Synthetic Substitute, Uncemented, Open Approach (ICD-10-PCS; principal; 2019-01-05)
DX: S72.001A Fracture of unspecified part of neck of right femur, initial encounter for closed fracture (principal); J96.00 Acute respiratory failure, unspecified whether with hypoxia or hypercapnia; D68.8 Other specified coagulation defects; D68.2 Hereditary deficiency of other clotting factors; R64 Cachexia; Z68.1 Body mass index [BMI] 19.9 or less, adult; I10 Essential (primary) hypertension; F17.210 Nicotine dependence, cigarettes, uncomplicated; T45.515A Adverse effect of anticoagulants, initial encounter; E83.42 Hypomagnesemia; E83.39 Other disorders of phosphorus metabolism; W18.30XA Fall on same level, unspecified, initial encounter; E87.6 Hypokalemia; R79.1 Abnormal coagulation profile; Z85.818 Personal history of malignant neoplasm of other sites of lip, oral cavity, and pharynx; Z86.718 Personal history of other venous thrombosis and embolism; Z85.828 Personal history of other malignant neoplasm of skin; Z79.01 Long term (current) use of anticoagulants; Z79.899 Other long term (current) drug therapy
CPT/HCPCS: 36415; 71045; 80048; 80053; 82805; 83735; 84100; 85025; 85610; 85730; 86850; 86900; 86901; 93005; 94002; 94640; 96374; 99211; 99213; G0463; J0131; J0690; J1100; J1642; J1650; J2270; J2405; J2704; J3010; J3430; J3475; J3490; J7050; J7620